=== PATIENT | male | born 1990 | race Two or more races ===

== ENCOUNTER 2024-11-17 17:28 | Emergency (ER) | payer OTHER, BC ==
[~2024-11-17] VITALS: Ht 172.7 cm; Wt 72.6 kg
[2024-11-17 17:30] VITALS: BP 145/89; TEMP 97.9; O2SAT 99
[2024-11-17] MEDS ORDERED: IBUPROFEN 600 MG TABLET ONE (17:56)
[2024-11-17] MEDS: IBUPROFEN 600 MG TABLET PO ONE (17:59)
== END 2024-11-17 18:49 | disposition home or self-care (01) ==
LOC: ER 17:41
DX: M25.571 Pain in right ankle and joints of right foot (principal); V23.49XA Other motorcycle driver injured in collision with car, pick-up truck or van in traffic accident, initial encounter; Y93.89 Activity, other specified; Y92.488 Other paved roadways as the place of occurrence of the external cause; Y99.8 Other external cause status
CPT/HCPCS: 73610-TC